=== PATIENT | female | born 1990 | race Caucasian/White ===

== ENCOUNTER → 2018-01-15 | Outpatient (CLI) | payer OTHER ==
[~2018-01-15] MED LIST: DIPH50 PO; LORA2 PO; RXPROM25 PO; Zantac150 MG PO
== END | disposition home or self-care (01) ==
LOC: LAB SHORT 12:40 → OLS 12:40 → LAB FUT 01-15 12:20
DX: K58.9 Irritable bowel syndrome, unspecified (principal); R11.10 Vomiting, unspecified; R10.13 Epigastric pain
CPT/HCPCS: 87338

== ENCOUNTER → 2018-07-18 | Outpatient (CLI) | payer OTHER | END | disposition home or self-care (01) | LOC: LAB 12:03 → LAB SHORT 12:03 | DX: J02.9 Acute pharyngitis, unspecified (principal); R05 Cough | CPT/HCPCS: 87081; 87147 ==